=== PATIENT | female | born 1950 | race African-American/Black ===

== ENCOUNTER 2016-11-05 13:42 | Emergency (ER) | payer MEDICARE, OTHER ==
[~2016-11-05 13:42] MED LIST: ACCUPRIL PO; ACIPHEX20 MG PO; ALBUTEROL 0.5ML INH; ALBUTEROL MININEB NEB; ALBUTEROL17 GM INH; ALLEGRA-D1 TAB.SR1 PO; ASPIRIN PO; AUGMENTIN PO; BACTRIM DS TABL1 TAB PO; CALCIUM + VITAMIN D PO; CALCIUM PHOSPH PO; CECLOR PO; CERTAGEN PO; CHANTIX PO; CLARITIN10 MG PO; COLACE PO; COUMADIN PO; COUMADIN3 MG PO; COUMADIN5 MG PO; FERROUS SULFATE PO; FLEXTRA CAPSULE1 CAP PO; FOLIC ACID PO; FOSAMAX PO; GLUCOTROL PO; GLUCOTROL XL PO; GUAIFENESI1 TAB.SR . PO; INSULIN-REGULAR SUBQ; LEVAQUIN PO; LIPITOR PO; LOVENOX SUBQ; LYRICA PO; LYRICA75 MG PO; METHADONE PO; METHOTREXATE2.5 MG PO; MIRALAX255 GM PO; MULTI-VITAMIN1 TAB PO; MULTIVITAMIN W-1 TAB PO; MYLANTA400 MG PO; NASONEX17 GM; NEXIUM20 MG PO; NOVOLIN R100 U/ML INJ; ORAMORPH SR30 MG PO; OXYGEN NS; OYSTER CALCIUM500 MG PO; PATIENT'S PHARMACY; PERCOCET10 PO; PERCOCET7.5 PO; PLAQUENIL200 MG PO; POSTURE600 MG PO; PREDNISONE PO; PRILOSEC PO; PROTONIX PO; ZOFRAN ODT4 MG PO; ZYRTEC PO
[2016-11-05 14:34] LABS: BASOPHIL# 0.2 X10e3 (0-0.3); BASOPHIL% 3.4 % (0-2.5); EOSINOPHIL# 0.3 X10e3 (0-0.7); EOSINOPHIL% 6.7 % (0.0-7.0); HEMOGLOBIN 12.2 gm/dL (12.0-16.0); LYMPHOCYTE# 1.9 X10e3 (1.0-3.5); LYMPHOCYTE% 37.1 % (17.0-45.0); MEAN CELL VOLUME 92.4 FL (83-96); MEAN CORPUSCULAR HEMOGLOBIN 29.7 PG (28-34); MEAN CORPUSCULAR HGB CONC 32.1 g/dL (30-36); MEAN PLATELET VOLUME 10.3 FL (6.5-11.5); MONOCYTE# 0.2 X10e3 (0-1.0); MONOCYTE% 4.8 % (3.0-12.0); NEUTROPHIL# 2.5 X10e3 (1.5-7.1); RED BLOOD COUNT 4.11 X10e (3.90-5.30); RED CELL DISTRIBUTION WIDTH 15.3 % (11.0-15.5); WHITE BLOOD COUNT 5.2 X10e3 (4.0-10.5)
[2016-11-05 14:46] LABS: ALBUMIN SERUM 4.1 g/dL (3.5-5.0); BILIRUBIN, DIRECT 0.1 mg/dL (0.0-0.2); BILIRUBIN,INDIRECT 0.5 mg/dL (0.0-0.9); BILIRUBIN,TOTAL 0.6 mg/dL (0.2-2.0); BUN/CREATININE RATIO 14.28; CREATININE SERUM 0.7 mg/dL (0.6-1.4); GLOM FILT RATE Estimated 105.4 mL/min (>60); PROTEIN TOTAL SERUM 8.3 g/dL (6.0-8.3)
[2016-11-05 14:47] LABS: PARTIAL THROMBOPLASTIN TIME 53.1 SECONDS (23.5-31.3); POTASSIUM 2.7 mmol/L (3.5-5.1); PROTHROMBIN TIME (PATIENT) 111.7 SECONDS (9.6-11.5)
[2016-11-05 14:48] LABS: DIFF IND NO
[2016-11-05 14:49] LABS: PLATELET COUNT 268 X10e3 (140-420)
[2016-11-05 14:55] LABS: INR 9.8
== END 2016-11-05 17:40 | disposition left against medical advice (07) ==
LOC: CED 13:42
PROVIDERS: Emergency Medicine
DX: R79.1 Abnormal coagulation profile (principal); E78.5 Hyperlipidemia, unspecified; I10 Essential (primary) hypertension; Z90.710 Acquired absence of both cervix and uterus; Z88.1 Allergy status to other antibiotic agents; Z87.891 Personal history of nicotine dependence
CPT/HCPCS: 36415; 80048; 80076; 83735; 85025; 85610; 85730; 99283; J3430